=== PATIENT | male | born 1975 | race Caucasian/White ===

== ENCOUNTER 2018-10-25 13:30 | Day surgery (SDC) | payer OTHER ==
[2018-10-22 11:59] VITALS: BMI 25.7
[2018-10-25] MEDS ORDERED: MIDAZOLAM HCL 2 MG/2 ML SINGLE DOSE VIAL ONE (15:55)
[2018-10-25] MEDS ORDERED: oxyCODONE HCL 5 MG TABLET PO PRN ×2 (16:01)
[2018-10-25] MEDS ORDERED: ONDANSETRON 4 MG/2 ML VIAL IVPUSH PRN (16:01)
[2018-10-25] MEDS ORDERED: LACTATED RINGERS SOLUTION 1,000 ML IV SCH (16:15)
[2018-10-25] MEDS ORDERED: ceFAZolin SODIUM 1 GM VIAL ONE (16:32)
[2018-10-25] MEDS ORDERED: DEXAMETHASONE SOD PHOSPHATE 4 MG/1 ML VIAL ONE (16:32)
[2018-10-25] MEDS ORDERED: ONDANSETRON 4 MG/2 ML VIAL ONE ×2 (16:32→18:41)
[2018-10-25] MEDS ORDERED: ePHEDrine SULFATE 50 MG/1 ML AMPULE ONE (16:52)
[2018-10-25] MEDS ORDERED: LIDOCAINE HCL/PF 2% SDV 5ML VIAL ONE (17:23)
[2018-10-25] MEDS ORDERED: PROPOFOL 20 ML ONE (18:02)
[2018-10-25] MEDS ORDERED: KETOROLAC TROMETHAMINE 30 MG/1 ML VIAL IVPUSH ONE ×2 (18:45→19:00)
[2018-10-25] MEDS ORDERED: KETOROLAC TROMETHAMINE 30 MG/1 ML VIAL ONE (18:58)
--- NOTE | 2018-10-25 18:58 | OP ---
Operative Note - Note: Operative Date: 10/25/18 Pre-Operative Diagnosis: Symptomatic left 4th finger hardware Operation: 1. Removal of hardware left 4th finger. 2. Inspection fusion mass. 3. Tenolysis. 4. Debridement (metallosis) Findings: 3 x Retained screw shafts (heads broken off) Tourniquet pressure: 250mmHg Tourniquet time: 55 minutes Post-Operative Diagnosis: Same as Pre-op Surgeon: Hilario Sellers Lacquer Coater: Mike Sellers Anesthesiologist/SKIN CARVER: Leena Calhoun Anesthesia: General Specimens Removed: Hardware (1 x plate, 1 x screw, 3 x screw heads) Estimated Blood Loss (mls): 0 Fluid Volume Replaced (mls): 1,300 (LR) Operative Report Dictated: Yes
--- NOTE | 2018-10-25 18:59 | PN ---
Progress Note (short form) - Note Progress Note: 43M s/p LEFT 4th finger VICENTE, inspection of fusion mass, tenolysis, & debridement of metallosis POD #0. -Pain control: Meloxicam & oxycodone PRN. -Incentive spirometry. -No chemical DVT PPx. -NWB LUE. -No L hand ROM. -Daily L shoulder, elbow, & wrist ROM. -Keep dressing clean & dry. -f/u in [facility] [place] [facility] on Sunday11/01/2018; call for appointment; . Hilario Sellers MD (Orthopaedic Surgery).
[2018-10-25] MEDS ORDERED: oxyCODONE HCL 5 MG TABLET ONE (19:36)
[2018-10-25 20:15] VITALS: BP 115/73; PULSE 85; TEMP 98.3
--- NOTE | 2018-10-28 09:14 | OP ---
Date of Operation: 10/25/2018 Pre-Operative Diagnosis: 1. Symptomatic left 4th finger hardware. 2. Left 4th finger stiffness Post-Operative Diagnosis: 1. Symptomatic left 4th finger hardware. 2. Left 4th finger stiffness Procedure Performed: 1. Removal of hardware left 4th finger 2. Inspection of fusion mass 3. Left 4th finger extensor tenolysis 4. Debridement (metallosis) Surgeon: Hilario Sellers M.D. Whiskey Regauger: Mike Sellers M.D. Anesthesiologist: Leena Calhoun M.D. Anesthesia: General, LMA Position: Prone. Tourniquet Pressure: 250mmHg. Tourniquet Time: 55 minutes. Incision: Midline. Specimens Removed: Hardware (1 plate, 1 screw, 3 screw heads). Drains: None. Estimated Blood Loss: 0cc. Intravenous Fluid: 1.3L crystalloid. Transfusions: None. Complications: None. Bacteriology: None. Closure: No. 2-0 Nylon. Indications: The patient underwent open reduction internal fixation of his left 4th finger middle phalanx nearly 20 years ago. Due to painful, symptomatic hardware that was backing out and causing callosities, he was indicated for removal of this hardware. The patient was identified in the holding area by his armband. A long discussion was held with the patient regarding the risks, benefits and alternatives of the above-named procedure. Risks include but are not limited to : pain, bleeding, infection, damage to surrounding structures (including nerves , blood vessels, skin, ligaments, tendons and bone), reflex sympathetic dystrophy (RSD), retained hardware, wound complications, need for further surgery, blood clots, myocardial infarction, pulmonary embolism, anesthesia complications, compartment syndrome, limb loss, limp, loss of function, and . Benefits as mentioned above. Alternatives include no surgery. All questions were answered. The patient appeared to understand and agreed to the procedure. Informed consent was obtained, witnessed and verified. The patients correct operative limb - the left upper extremity - was marked, and the patient was taken to the operating room after being seen by the anesthesia and nursing staff. Procedure: The patient was brought into the operating room, placed supine on the OR table and secured with a safety strap. A hand table was utilized. Consent and the operative site was again verified with the patient and nursing and anaesthesia staff. Anesthesia and antibiotics were then administered without complication. A time-out was done led by , the attending surgeon. The patient was positioned with all bony prominences well padded. A tourniquet was placed proximally on the left arm and set to 250mmHg. The operative limb was prepped in standard sterile fashion using betadine prep & scrub, wiped off with alcohol, and DuraPrep applied. The left upper extremity was then free draped. A time-out was repeated, the left upper extremity was exsanguinated using an Esmarch, the tourniquet was inflated, and the case began. A longitudinal incision was through the previous incisional scar over the dorsal surface of the left 4th finger. The incision was extended proximally and distally. Sharp dissection was carried down through the subcutaneous tissues. Next, a tenolysis of the extensor mendez was performed, splitting it longitudinally using a fresh 15-blade. Ragnell retractors were used facilitate visualization. It was immediately evident that the plate had lifted off the bone proximally. A freer elevator was used to expose the borders of the plate. Bone had grown onto and into the hardware. A dental pick was utilized to osteotomized this bone and free the implant from the underlying phalanx. The proximal screw was successfully removed. Upon attempted removal of the distal 3 screws, the screw heads broke at their junction points with the screw shafts. The 3 distal screw heads and the plate were removed. Trace amounts of metallosis was debrided from the surrounding soft tissues. The previous fracture site was inspected and found to be well united. The finger was taken through a gentle range of motion with no improvement from baseline demonstrated. The wound was then copiously irrigated using normal saline solution. The skin was closed using 2-0 Nylon sutures simple interrupted and deep mattress ([place]enbach) fashion. A sterile compressive dressing was applied. The tourniquet was released at a final time of 55 minutes. The sponge and needle counts were correct at the end of the case and Ai, the attending surgeon, was present and scrubbed throughout the case. The patient was then transferred to the recovery room in stable condition, as per the anesthesia team, having tolerated the procedure well. MD JAYLAN Isaac/[id number] MTDD
--- NOTE | 2018-10-30 14:27 | PATH ---
Surgical Pathology Report Patient Name: KARON TODD Med. Rec. #: [id number] /Age/Gender: 1975 (Age: 43) / M Account: [id number] Location: [facility] Taken: 10/25/2018 Received: 10/25/2018 Reported: 10/30/2018 Physicians: Hilario Sellers M.D. Specimen(s) Received HARDWARE OF LEFT 4TH FINGER Clinical History Symptomatic hardware of left ring finger Final Diagnosis HARDWARE, LEFT 4TH FINGER, REMOVAL: HARDWARE, DESCRIBED (GROSS EXAMINATION ONLY). Electronically Signed Lissett Cantu M.D. Gross Description Received fresh labeled "hardware of left 4th finger," is a 1.0 cm in greatest dimension collier metallic plate. Also received within the same container are 4 collier metallic screws ranging from 0.2-0.7 cm in length. No soft tissue is present. No sections are submitted, grossly. /10/28/2018 saudi10/28/2018
== END 2018-10-25 20:15 | disposition home or self-care (01) ==
LOC: FASU 13:30
PROVIDERS: ATTEND Orthopaedic Surgery Adult Reconstructive Orthopaedic Surgery
PROC: 0LN80ZZ Release Left Hand Tendon, Open Approach (ICD-10-PCS; 2018-10-25)
PROC: 0RPX0JZ Removal of Synthetic Substitute from Left Finger Phalangeal Joint, Open Approach (ICD-10-PCS; principal; 2018-10-25 17:15)
DX: T84.84XA Pain due to internal orthopedic prosthetic devices, implants and grafts, initial encounter (principal); Z47.2 Encounter for removal of internal fixation device; M25.642 Stiffness of left hand, not elsewhere classified; Y79.8 Miscellaneous orthopedic devices associated with adverse incidents, not elsewhere classified; Y92.9 Unspecified place or not applicable
CPT/HCPCS: 73130-TC-LT-FY; 88300-TC; 94760